=== PATIENT | male | born 1980 | race Caucasian/White ===

== ENCOUNTER 2021-11-11 14:38 | Emergency (ER) | payer SELFPAY ==
[2021-11-11] MEDS ORDERED: HYDROCODONE/APAP 10/325 TAB ONE (15:21)
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
--- NOTE | 2021-11-11 16:04 | ER ---
Nurse's Notes [facility] Name: Dwayne Lambert Age: 41 yrs Sex: Male : 1980 Arrival Date: 11/11/2021 Time: 14:40 Bed 9 Private MD: Diagnosis: Contusion of right elbow;Pain in right elbow Presentation: 11/11 15:05 Chief complaint: Patient states: R elbow pain x approx 2 weeks, states, " I hit it on ph something and it's been hurting since.". Coronavirus screen: Vaccine status: Patient reports being unvaccinated. Ebola Screen: No symptoms or risks identified at this time. Initial Sepsis Screen: Does the patient meet any 2 criteria? No. Patient's initial sepsis screen is negative. Does the patient have a suspected source of infection? No. Patient's initial sepsis screen is negative. Risk Assessment: Do you want to hurt yourself or someone else? Patient reports no desire to harm self or others. Onset of symptoms was November 11, 2021. 15:05 Method Of Arrival: Ambulatory ph 15:05 Acuity: ZE 4 ph Triage Assessment: 15:07 General: Appears in no apparent distress. comfortable, well groomed, Behavior is calm, ph cooperative, appropriate for age. Pain: Complains of pain in right elbow. Neuro: No deficits noted. Derm: Skin is intact, is healthy with good turgor, Skin is pink, warm \\T\\ dry. Musculoskeletal: Circulation, motion, and sensation intact. Range of motion: intact in all extremities. Historical: - Allergies: 15:07 No Known Allergies; ph - PMHx: 15:07 None; ph - Immunization history:: Adult Immunizations unknown. - Social history:: Smoking status: Patient reports the use of cigarette tobacco products, smokes one-half pack cigarettes per day. - Family history:: not pertinent. Screenin:23 Abuse screen: Denies threats or abuse. Denies injuries from another. Nutritional ph screening: No deficits noted. Tuberculosis screening: No symptoms or risk factors identified. Fall Risk None identified. Assessment: 15:22 General: SEE TRIAGE ASSESSMENT. ph Vital Signs: 15:05 BP 128 / 85; Pulse 62; Resp 18; Temp 98.6; Pulse Ox 98% on R/A; Weight 102.06 kg; ph Height 6 ft. 4 in. (193.04 cm); 15:05 Body Mass Index 27.39 (102.06 kg, 193.04 cm) ph ED Course: 14:40 Patient arrived in ED. rg4 14:47 Mack Merritt MD is Attending Physician. [facility] 15:07 Triage completed. ph 15:07 Arm band placed on Patient placed in waiting room, Patient notified of wait time. X-ray ph ordered. 15:22 Linda Ya, RN is Primary Nurse. ph 16:03 Aj Ruff MD is Referral Physician. [facility] 16:10 XRAY Elbow RIGHT 3 view In Process Unspecified. EDMS 16:16 No provider procedures requiring assistance completed. Patient did not have IV access ss during this emergency room visit. Sling applied to right arm. Administered Medications: 15:23 Drug: [place] (HYDROcodone-acetaminophen) 10 mg-325 mg 1 tabs Route: PO; ph 16:16 Follow up: Response: No adverse reaction ss 16:16 Drug: Motrin (ibuprofen) 600 mg Route: PO; ss 16:16 Follow up: Response: No adverse reaction ss Outcome: 16:04 Discharge ordered by . [facility] 16:23 Discharged to home ambulatory. ss 16:23 Condition: good 16:23 Discharge instructions given to patient, family, Instructed on discharge instructions, follow up and referral plans. medication usage, Demonstrated understanding of instructions, follow-up care, medications, Prescriptions given X 2. 16:25 Patient left the ED. ss Signatures: Dispatcher [employer] EDKY Mack Merritt MD MD cha Smirch, Shelby, RN RN Linda Ya RN RN Meli Shell rg4
[2021-11-11] MEDS ORDERED: IBUPROFEN 200 MG TAB PO ONE (16:18)
--- NOTE | 2021-11-11 16:25 | RAD REPORT ---
EXAM DESCRIPTION: RAD - Elbow Right 3 View - 11/11/2021 4:08 pm CLINICAL HISTORY: Right elbow pain FINDINGS: No fracture or dislocation is seen. No bone or joint abnormality noted
[2021-11-11 16:31] VITALS: BP 128/85; TEMP 98.6; O2SAT 98
== END 2021-11-11 16:25 | disposition home or self-care (01) ==
LOC: ER 14:38
DX: S50.01XA Contusion of right elbow, initial encounter (principal); W22.8XXA Striking against or struck by other objects, initial encounter; Y92.009 Unspecified place in unspecified non-institutional (private) residence as the place of occurrence of the external cause; F17.210 Nicotine dependence, cigarettes, uncomplicated
CPT/HCPCS: 99284

== ENCOUNTER 2023-11-11 16:22 | Emergency (ER) | payer SELFPAY ==
--- OUTSIDE RECORDS SUMMARY | 2023-11-11 16:25 | XMS REPORT | Continuity of Care Document ---
Author Name Unknown Address [address] [facility] [address] [place] [address] [facility] thconnect Address [address] [facility] [place] [address] Care Team Providers Care Public Health Professor Name Role Phone Unavailable Unavailable Unavailable Results Test Description Test Time Test Comments Results Result Co mments Source SARS-CoV-2 (COVID-19), RT-PCR/[id number] 17:22:59* Test Item Value Reference Range Interpretation Comments SARS-CoV-2 INTERPRETATION (test code = 57451) POSITIVE SEE NOTE A SARS-CoV-2 RNA DETECTEDPositive results are indicative of the presence of SARS-CoV-2 RNA;clinical correlation with patient history and other diagnosticinformation is necessary to determine patient infection status.Positive results do not rule out bacterial infection or co-infectionwith other viruses. Positive and negative predictive values oftesting are highly dependent on prevalence. SOURCE (test code = 89173) NASOPHARYNGEAL Note: Methodolog y is Clarke Brianna Real-Time RT-PCR. The expected result or reference range is NEGATIVE (Not Detected). For more information regarding COVID-19 testing to include clinicalinformation, methodology detail, intended use, FDA authorization andrecommended fact sheets for patients or healthcare providers, see [employer] Announcement: SARS-CoV-2 (COVID-19) by NAAT at URL below (note,fact sheets are provided by method given in report:[email or web address]/ Alternatively, see downloadable PDF fact sheet at:[email or web address] om/[email or web address]-[email or web address] UNLESS OTHERWISE INDICATED, ALL TESTING PERFORMED [facility] [employer] [address] [place] [id number] INJECTION MOLDING TECHNICIAN: Cheryl YANEZIA NUMBER [id number] [facility] [place]. [id number]
--- NOTE | 2023-11-11 16:40 | ER ---
Nurse's Notes [facility] Name: Dwayne Lambert Age: 43 yrs Sex: Male : 1980 Arrival Date: 11/11/2023 Time: 16:22 Bed Waiting Private MD: Diagnosis: Olecranon bursitis, left elbow Presentation: 11/10 16:35 Chief complaint: Patient states: left elbow swelling x2 months and is now starting to as6 be painful. Coronavirus screen: At this time, the client does not indicate any symptoms associated with coronavirus-19. Ebola Screen: No symptoms or risks identified at this time. Risk Assessment: Do you want to hurt yourself or someone else? Patient reports no desire to harm self or others. Onset of symptoms was September 2023. 16:35 Acuity: ZE 4 as6 16:35 Method Of Arrival: Ambulatory as6 16:41 Initial Sepsis Screen: Does the patient meet any 2 criteria? No. Patient's initial as6 sepsis screen is negative. Does the patient have a suspected source of infection? No. Patient's initial sepsis screen is negative. Triage Assessment: 16:40 General: Appears in no apparent distress. Behavior is calm, cooperative. Pain: as6 Complains of pain in left elbow. Musculoskeletal: Swelling present in left elbow. Historical: - Allergies: 16:36 No Known Allergies; as6 - PMHx: 16:36 None; as6 - PSHx: 16:36 None; as6 - Immunization history:: Adult Immunizations up to date. - Infectious Disease History:: Denies. - Social history:: Smoking status: Patient denies any tobacco usage or history of. Screenin:40 [facility] ED Fall Risk Assessment (Adult) History of falling in the last 3 months, as6 including since admission No falls in past 3 months (0 pts) Confusion or Disorientation No (0 pts) Intoxicated or Sedated No (0 pts) Impaired Gait No (0 pts) Mobility Assist Device Used No (0 pt) Altered Elimination No (0 pt) Score/Fall Risk Level 0 - 2 = Low Risk Oriented to surroundings, Maintained a safe environment, Educated pt \T\ family on fall prevention, incl call for assistance when getting out of bed, Assessed \T\ reinforced patient's understanding of fall precautions. Abuse screen: Denies threats or abuse. Denies injuries from another. Nutritional screening: No deficits noted. Tuberculosis screening: No symptoms or risk factors identified. Vital Signs: 16:38 BP 131 / 80; Pulse 73; Resp 18 S; Temp 98.3(TE); Pulse Ox 100% on R/A; Weight 95.25 kg as6 (R); Height 6 ft. 4 in. (R); Pain 6/10; 16:38 Body Mass Index 25.56 (95.25 kg, 193.04 cm) as6 16:38 Pain Scale: Adult as6 ED Course: 16:25 Patient arrived in ED. mr 16:25 Melania Sage FNP-C is [facility]. kb 16:25 Carroll Gilliland MD is Attending Physician. kb 16:35 Arm band placed on. as6 16:36 Triage completed. as6 16:41 Patient has correct armband on for positive identification. Provided Education on: as6 follow up with ortho . 16:41 No provider procedures requiring assistance completed. Patient did not have IV access as6 during this emergency room visit. Administered Medications: No medications were administered Medication: 16:41 VIS not applicable for this client. as6 Outcome: 16:39 Discharge ordered by . kb 16:41 Discharged to home ambulatory, as6 16:41 Condition: stable 16:41 Discharge instructions given to patient, Instructed on discharge instructions, follow up and referral plans. medication usage, Demonstrated understanding of instructions, follow-up care, medications, Prescriptions given X 1, 16:43 Patient left the ED. as6 Signatures: Melania Sage FNP-C FNP-Katiuska Fernández, Roc Reg Masood Hull, RN RN as6
--- NOTE | 2023-11-11 16:40 | EDPHYS ---
Physician Documentation [facility] Name: Dwayne Lambert Age: 43 yrs Sex: Male : 1980 Arrival Date: 11/11/2023 Time: 16:22 Bed Waiting Private MD: ED Physician Carroll Gilliland HPI: 11/10 17:30 This 43 yrs old Male presents to ER via Ambulatory with complaints of Elbow Swelling. kb 17:30 Pt is a 43 year old male who presents for swelling and tenderness to left elbow that kb started 2 weeks ago. States there has been times when he was able to pop the area and it return to normal size, but then it swells again. Denies fever, decreased ROM. Historical: - Allergies: 16:36 No Known Allergies; as6 - PMHx: 16:36 None; as6 - PSHx: 16:36 None; as6 - Immunization history:: Adult Immunizations up to date. - Infectious Disease History:: Denies. - Social history:: Smoking status: Patient denies any tobacco usage or history of. ROS: 17:01 Constitutional: As per HPI kb Exam: 17:25 Constitutional: This is a well developed, well nourished patient who is awake, alert, kb and in no acute distress. Head/Face: Normocephalic, atraumatic. ENT: Moist Mucous membranes Cardiovascular: Regular rate Respiratory: Respirations even and unlabored. No increased work of breathing. Talking in full sentences Abdomen/GI: Soft, non-tender. No distention Skin: Warm, dry with normal turgor. Normal color. Neuro: Awake and alert, GCS 15, oriented to person, place, time, and situation. Moves all extremities. Normal gait. 17:25 Musculoskeletal/extremity: Extremities: grossly normal except: noted in the left elbow: swelling, tenderness, ROM: intact in all extremities, Circulation is intact in all extremities. Sensation intact. Vital Signs: 16:38 BP 131 / 80; Pulse 73; Resp 18 S; Temp 98.3(TE); Pulse Ox 100% on R/A; Weight 95.25 kg as6 (R); Height 6 ft. 4 in. (R); Pain 6/10; 16:38 Body Mass Index 25.56 (95.25 kg, 193.04 cm) as6 16:38 Pain Scale: Adult as6 MDM: 16:25 Patient medically screened. kb 17:25 Differential diagnosis: cellulitis, abscess, bursitis. Data reviewed: vital signs, kb nurses notes. Test considered but Not performed: X-ray: xray considered but pt has no bony tenderness or injury. Counseling: I had a detailed discussion with the patient and/or guardian regarding the historical points, exam findings, and any diagnostic results supporting the discharge/admit diagnosis, the need for outpatient follow up, a family practitioner, to return to the emergency department if symptoms worsen or persist or if there are any questions or concerns that arise at home. ED course: Discussed bursitis and treatment. No erythema, warmth, signs of infection at this time. Discussed this with pt and pt reports the area was red and burning hot last night. States he has tried all of the compresses without any improvement. . Administered Medications: No medications were administered Disposition Summary: 11/11/23 16:39 Discharge Ordered Notes: Location: Home kb Condition: Stable kb Diagnosis - Olecranon bursitis, left elbow kb Followup: kb - With: Emergency Department - When: As needed - Reason: Worsening of condition Followup: kb - With: Private Physician - When: 2 - 3 days - Reason: Recheck today's complaints, Continuance of care, Re-evaluation by your physician Discharge Instructions: - Discharge Summary Sheet kb - Elbow Bursitis, Uupf-[id number] kb Forms: - Medication Reconciliation Form kb - Antibiotic Education kb - Prescription Opioid Use kb - Patient Portal Instructions kb - Leadership Thank You Letter kb Prescriptions: - Cephalexin 500 mg Oral Capsule - take 1 capsule ORAL route every 8 hours for 10 days; 30 capsule; Refills: 0, kb Product Selection Permitted Signatures: Melania Sage, M[employer]-C PACKAGING TECHNICIAN-Masood Tang, RN RN as6
[2023-11-11 17:06] VITALS: BP 131/80; TEMP 98.3; O2SAT 100
== END 2023-11-11 16:43 | disposition home or self-care (01) ==
LOC: ER 16:22
DX: M70.22 Olecranon bursitis, left elbow (principal)
CPT/HCPCS: 99283

== ENCOUNTER 2025-03-23 08:34 | Emergency (ER) | payer SELFPAY ==
[2025-03-23] MEDS ORDERED: ALBUTEROL 2.5 MG/3 ML NEB SOL ONE (09:06)
[2025-03-23 09:14] LABS: Influenza A Ag Negative; Influenza B Ag Negative; SARS-CoV-2 Antigen Rapid Res Negative (Negative)
--- NOTE | 2025-03-23 09:23 | ER ---
Nurse's Notes [facility] Name: Dwayne Lambert Age: 44 yrs Sex: Male : 1980 Arrival Date: 03/23/2025 Time: 08:34 Bed 6 Private MD: Diagnosis: Acute upper respiratory infection, unspecified Presentation: 03/23 08:42 Chief complaint: Patient states: CONGESTION AND SORE THROAT X 1 WEEK. Coronavirus db screen: Client denies travel out of the [place] in the last 14 days. At this time, the client does not indicate any symptoms associated with coronavirus-19. Ebola Screen: Patient negative for fever greater than or equal to 101.5 degrees Fahrenheit, and additional compatible Ebola Virus Disease symptoms Patient denies exposure to infectious person. Patient denies travel to an Ebola-affected area in the 21 days before illness onset. No symptoms or risks identified at this time. Initial Sepsis Screen: Does the patient meet any 2 criteria? No. Patient's initial sepsis screen is negative. Does the patient have a suspected source of infection? No. Patient's initial sepsis screen is negative. Risk Assessment: Do you want to hurt yourself or someone else? Patient reports no desire to harm self or others. Onset of symptoms was March 18, 2025. 08:42 Method Of Arrival: Ambulatory db 08:42 Acuity: ZE 4 db Triage Assessment: 08:53 General: Appears in no apparent distress. Behavior is appropriate for age. Pain: bp Complains of pain in neck. EENT: Reports pain when swallowing. Neuro: No deficits noted. Cardiovascular: No deficits noted. Respiratory: No deficits noted. GI: No signs and/or symptoms were reported involving the gastrointestinal system. : No signs and/or symptoms were reported regarding the genitourinary system. Derm: No deficits noted. Musculoskeletal: No deficits noted. Historical: - Allergies: 08:45 Banana; db - Home Meds: 08:45 None [Active]; db - PMHx: 08:45 None; db - Immunization history:: Adult Immunizations unknown. - Infectious Disease History:: Denies. - Social history:: Smoking status: Patient denies any tobacco usage or history of. Screenin:54 [facility] ED Fall Risk Assessment (Adult) History of falling in the last 3 months, bp including since admission No falls in past 3 months (0 pts) Confusion or Disorientation No (0 pts) Intoxicated or Sedated No (0 pts) Impaired Gait No (0 pts) Mobility Assist Device Used No (0 pt) Altered Elimination No (0 pt) Score/Fall Risk Level 0 - 2 = Low Risk Oriented to surroundings. Abuse screen: Denies threats or abuse. Denies injuries from another. Nutritional screening: No deficits noted. Tuberculosis screening: No symptoms or risk factors identified. Assessment: 08:54 General: SEE TRIAGE NOTE. bp 09:13 Reassessment: Patient appears in no apparent distress at this time. Patient is alert, bp oriented x 3, equal unlabored respirations, skin warm/dry/pink. Vital Signs: 08:42 BP 159 / 98; Pulse 64; Resp 18; Temp 97.9; Pulse Ox 98% ; Weight 111.58 kg; Height 6 db ft. 4 in. ; 09:12 BP 135 / 85; Pulse 67; Resp 16; Pulse Ox 97% ; bp 08:42 Body Mass Index 29.94 (111.58 kg, 193.04 cm) db ED Course: 08:38 Patient arrived in ED. al6 08:39 Francis Amaya MD is Attending Physician. sp3 08:40 [facility]C [facility] kb 08:46 Jaja Esparza, RN is Primary Nurse. db 08:53 Triage completed. db 08:53 Arm band placed on. bp 08:54 Patient has correct armband on for positive identification. bp 08:56 Group A Streptococcus Rapid Sent. bc6 08:56 COVID-19 Ag + Flu A+B Ag Sent. bc6 08:56 COVID swab sent to lab. Strep swab sent to lab. bc6 09:36 No provider procedures requiring assistance completed. Patient did not have IV access bp during this emergency room visit. Administered Medications: 09:12 Drug: Dexamethasone IM 10 mg IM once Route: IM; Site: right deltoid; bp 09:37 Follow up: Response: No adverse reaction bp 09:12 Drug: Albuterol Inhalation 2.5 mg Inhalation once Route: Inhalation; bp Medication: 08:54 VIS not applicable for this client. bp Outcome: 09:22 Discharge ordered by . kb 09:36 Discharged to home ambulatory, bp 09:36 Condition: stable 09:36 Discharge instructions given to patient, Instructed on discharge instructions, follow up and referral plans. medication usage, Demonstrated understanding of instructions, follow-up care, medications, Prescriptions given X 2, 09:37 Patient left the ED. bp Signatures: Melania Sage FNP-C FNP-Ckb Peltier, Brian, RN RN bp Francis Amaya MD MD sp3 Jaja Esparza RN RN db Marisela Rodriguez 6 [place]6 Corrections: (The following items were deleted from the chart) 08:54 08:45 Allergies: No Known Allergies; db db
--- NOTE | 2025-03-23 09:23 | EDPHYS ---
Physician Documentation [facility] Name: Dwayne Lambert Age: 44 yrs Sex: Male : 1980 Arrival Date: 03/23/2025 Time: 08:34 Bed 6 Private MD: ED Physician Francis Amaya HPI: 03/23 08:47 This 44 yrs old Male presents to ER via Unassigned with complaints of Flu Symptoms. kb 08:47 Patient is a 44-year-old male who presents for cough, congestion, sore throat, body kb aches, subjective fever for 1 week. States his boss told him he needed to come in today for evaluation.. Historical: - Allergies: 08:45 Banana; db - Home Meds: 08:45 None [Active]; db - PMHx: 08:45 None; db - Immunization history:: Adult Immunizations unknown. - Infectious Disease History:: Denies. - Social history:: Smoking status: Patient denies any tobacco usage or history of. ROS: 08:47 Constitutional: As per HPI kb Exam: 08:47 Constitutional: This is a well developed, well nourished patient who is awake, alert, kb and in no acute distress. Head/Face: Normocephalic, atraumatic. ENT: Moist Mucous membranes Respiratory: Respirations even and unlabored. No increased work of breathing. Talking in full sentences Skin: Warm, dry with normal turgor. Normal color. MS/ Extremity: Pulses equal, no cyanosis. Neurovascular intact. Full, normal range of motion. Neuro: Awake and alert, GCS 15, oriented to person, place, time, and situation. 08:47 ENT: Ear canal(s): are normal, TM's: fluid levels, on the right, Nose: is normal, Posterior pharynx: erythema, that is moderate, Vital Signs: 08:42 BP 159 / 98; Pulse 64; Resp 18; Temp 97.9; Pulse Ox 98% ; Weight 111.58 kg; Height 6 db ft. 4 in. ; 09:12 BP 135 / 85; Pulse 67; Resp 16; Pulse Ox 97% ; bp 08:42 Body Mass Index 29.94 (111.58 kg, 193.04 cm) db MDM: 08:40 Medical Screening Exam initiated kb 08:48 Data reviewed: vital signs, nurses notes. kb 09:21 Differential diagnosis: covid, flu, pneumonia, strep. I considered the following kb discharge prescriptions or medication management in the emergency department I discussed and recommended Over The Counter medications, Antibiotics: At this time antibiotics are not recommended. Test considered but Not performed: X-ray: chest xray considered but lungs clear bilaterally, resp even and unlabored. Counseling: I had a detailed discussion with the patient and/or guardian regarding the historical points, exam findings, and any diagnostic results supporting the discharge/admit diagnosis, lab results, the need for outpatient follow up, a family practitioner, to return to the emergency department if symptoms worsen or persist or if there are any questions or concerns that arise at home. 03/23 08:40 Order name: COVID-19 Ag + Flu A+B Ag; Complete Time: 09:15 kb 03/23 08:40 Order name: Group A Streptococcus Rapid; Complete Time: 09:05 kb 03/23 09:05 Order name: Throat Culture EDMS Administered Medications: 09:12 Drug: Dexamethasone IM 10 mg IM once Route: IM; Site: right deltoid; bp 09:37 Follow up: Response: No adverse reaction bp 09:12 Drug: Albuterol Inhalation 2.5 mg Inhalation once Route: Inhalation; bp Disposition Summary: 03/23/25 09:22 Discharge Ordered Notes: Location: Home kb Condition: Stable kb Diagnosis - Acute upper respiratory infection, unspecified kb Followup: kb - With: Emergency Department - When: As needed - Reason: Worsening of condition Followup: kb - With: Private Physician - When: 2 - 3 days - Reason: Recheck today's complaints, Continuance of care, Re-evaluation by your physician Discharge Instructions: - Discharge Summary Sheet kb - Upper Respiratory Infection, Adult, [id number] kb Forms: - Medication Reconciliation Form kb - Antibiotic Education kb - Prescription Opioid Use kb - Patient Portal Instructions kb - Leadership Thank You Letter kb Prescriptions: - albuterol sulfate 90 mcg/actuation Inhalation HFA Aerosol Inhaler - inhale 2 puff INHALATION route every 4 to 6 hours as needed for shortness of kb breath or wheezing; 1 Unspecified; Refills: 0, Product Selection Permitted - Prednisone 20 mg Oral Tablet - take 1 tablet ORAL route once daily for 5 days; 5 tablet; Refills: 0, Product kb Selection Permitted Signatures: Dispatcher [employer] EDMS Melania Sage, CHECK TOTALER-C CHECK TOTALER-Carroll Szymanski, RN RN bp Jaja Esparza, RN RN db Corrections: (The following items were deleted from the chart) 08:40 08:40 COVID-19 Ag + Flu A+B Ag+I.LAB.BRZ ordered. EDMS EDMS 08:40 08:40 Group A Streptococcus Rapid Sc+I.LAB.BRZ ordered. EDMS EDMS 08:54 08:45 Allergies: No Known Allergies; db db
[2025-03-23 09:47] VITALS: TEMP 97.9
[2025-03-23 09:48] VITALS: BP 135/85; O2SAT 97
== END 2025-03-23 09:37 | disposition home or self-care (01) ==
LOC: ER 08:34
DX: J06.9 Acute upper respiratory infection, unspecified (principal); Z11.52 Encounter for screening for COVID-19
CPT/HCPCS: 36415; 87070; 87428; 96372; 99284; J1100; J7613

== ENCOUNTER 2025-04-18 11:27 | Emergency (ER) | payer SELFPAY ==
--- NOTE | 2025-04-18 12:19 | RAD REPORT ---
EXAM: CT Head Brain Wo Cont HISTORY: PAIN COMPARISON: None TECHNIQUE: Multiple contiguous axial images were obtained for a CT of the brain without contrast. Sag ittal and coronal reformats were performed. One or more of the following dose reduction techniques were used: Automated exposure control, adjus tment of the mA and kV according to patient size, and iterative reconstruction. Unless otherwise specified, incidental findings do not require dedicated imaging follow-up. FINDINGS: No evidence of hydrocephalus, intracranial hemorrhage, or extra-axial fluid collection. The brain is normal in morphology. The calvarium is intact. The visualized paranasal sinuses and mastoid air cells are essentially clear . IMPRESSION: No evidence of acute intracranial abnormality.
[2025-04-18 12:47] LABS: Absolute Lymphocytes (CBC) 4.0 K/uL (0.7-4.9); Hematocrit 44.7 % (39.6-49.0); Hemoglobin 15.0 g/dL (13.6-17.9); MCH 31.2 pg (27.0-35.0); MCHC 33.5 g/dL (32.0-36.0); MCV 93.0 fL (80-100); MPV 9.1 fL (7.6-11.3); Nucleated RBC Absolute Count 0.0 (0-0); Nucleated Red Blood Cells % 0.1 % (0-0); RBC Red Blood Cell Count 4.80 M/uL (4.33-5.43); White Blood Count 11.00 thou/uL (4.3-10.9)
--- NOTE | 2025-04-18 12:52 | RAD REPORT ---
EXAMINATION: ONE VIEW CHEST XR CLINICAL INDICATION: Male, 44 years old.,syncope TECHNIQUE: Frontal chest projection is submitted. Examination is limited by patient positioning and t echnique. COMPARISON: No prior exam. FINDINGS: The lungs are well inflated and clear. No pneumothorax or sizable effusion. The heart is normal in s ize. Mediastinal contours are unremarkable. IMPRESSION: No acute intrathoracic abnormalities.
--- NOTE | 2025-04-18 12:52 | RAD REPORT ---
EXAMINATION: XR RIGHT SHOUDLER CLINICAL INDICATION: Male, 44 years old. PAIN RIGHT TECHNIQUE:Two view radiograph of the right shoulder were obtained. COMPARISON: No prior exam. FINDINGS: No acute bone or joint abnormality detected. Soft tissues are unremarkable. IMPRESSION: No acute or significant abnormalities.
[2025-04-18 14:14] LABS: ALT/SGPT 22.0 U/L (16-61); AST/SGOT 25.0 U/L (15-37); Albumin 2.5 g/dL (3.4-5.0); Albumin/Globulin Ratio 0.4 (1.1-1.8); Alkaline Phosphatase 176.0 U/L (45-117); Anion Gap 10.7 mEq/L (5.0-15.0); BUN Blood Urea Nitrogen 14.0 mg/dL (7-18); Bilirubin Indirect, Calculated 0.5 mg/dL (0.2-0.8); Globulin 6.0 g/dL (2.3-3.5); Glucose Level 91.0 mg/dL (74-106); Troponin High Sensitivity 15.8 pg/mL (<58.9)
[2025-04-18 14:16] LABS: Magnesium 2.2 mg/dL (1.6-2.4); Potassium 3.7 mEq/L (3.5-5.1)
[2025-04-18] MEDS ORDERED: HYDROCODONE/APAP 5/325 MG TAB ONE (14:49)
[2025-04-18] MEDS ORDERED: NA CHLORIDE 0.9% 1,000 ML ONE (14:49)
--- NOTE | 2025-04-18 15:52 | EDPHYS ---
Physician Documentation [facility] Name: Dwayne Lambert Age: 44 yrs Sex: Male : 1980 Arrival Date: 04/18/2025 Time: 11:27 Bed 15 Private MD: ED Physician Carroll Gilliland HPI: 04/18 15:04 This 44 yrs old Male presents to ER via Ambulatory with complaints of Passed Out Prior kb To Arrival, Head Injury-Adult, Shoulder Injury - RT. 15:04 Pt is a 44 year old male who presents for syncope, head injury and pain to right kb shoulder. States he stood up this morning, got dizzy so he sat back down on an ottoman, then passed out. States he woke up on the floor. Reports he did hit his head and has pain to right shoulder. This has happened before due to a.fib. . Historical: - Allergies: 11:47 Banana; me1 - PMHx: 11:47 Atrial fibrillation; me1 - PSHx: 11:47 Myringotomy and insertion of tympanic ventilation tube; me1 - Immunization history:: Adult Immunizations up to date. - Infectious Disease History:: Denies. - Social history:: Smoking status: Patient reports the use of cigarette tobacco products, smokes one-half pack cigarettes per day. ROS: 15:03 Constitutional: As per HPI kb Exam: 14:37 Constitutional: This is a well developed, well nourished patient who is awake, alert, kb and in no acute distress. Head/Face: Normocephalic, atraumatic. ENT: Moist Mucous membranes Cardiovascular: Regular rate Respiratory: Respirations even and unlabored. No increased work of breathing. Talking in full sentences Abdomen/GI: Soft, non-tender. No distention Skin: Warm, dry with normal turgor. Normal color. Neuro: Awake and alert, GCS 15, oriented to person, place, time, and situation. 14:37 ECG was reviewed by the Attending Physician. 14:37 Musculoskeletal/extremity: Extremities: grossly normal except: noted in the right clavicle: pain, tenderness, ROM: limited active range of motion due to pain, Circulation is intact in all extremities. Sensation intact. Weight bearing: able to fully bear weight, Vital Signs: 11:44 BP 139 / 87; Pulse 65; Resp 16; Temp 98.4; Pulse Ox 98% ; Weight 65.77 kg; Height 6 ft. me1 4 in. ; Pain 2/10; 12:00 BP 129 / 77 Supine; Pulse 56; ts3 12:01 BP 124 / 83 Sitting; Pulse 57; ts3 12:02 BP 133 / 92 Standing; Pulse 60; ts3 13:12 BP 115 / 68 Supine; Pulse 61; Resp 18; Pulse Ox 100% on R/A; ts3 14:15 BP 129 / 90; Pulse 51; Resp 18; Pulse Ox 100% on R/A; kj2 15:11 BP 122 / 79; Pulse 52; Resp 20; Pulse Ox 100% on R/A; kj2 16:01 BP 124 / 80; Pulse 72; Resp 18; Temp 98(O); Pulse Ox 100% ; kj2 11:44 Body Mass Index 17.65 (65.77 kg, 193.04 cm) me1 11:44 Pain Scale: Adult me1 Marta Coma Score: 11:44 Eye Response: spontaneous(4). Motor Response: obeys commands(6). Verbal Response: me1 oriented(5). Total: 15. MDM: 11:42 Medical Screening Exam initiated kb 15:03 Data reviewed: vital signs, nurses notes. Independent interpretation of the following kb test(s) in the Emergency Department X-Ray: My interpretation is No clavicle fracture. 15:50 Differential Diagnosis: cardiac arrhythmia, idiopathic syncope, vasovagal episode, kb dehydration. Consideration of Admission/Observation Escalation of care including admission/observation considered. admission considered but pt states he feels fine and would like to go home. Counseling: I had a detailed discussion with the patient and/or guardian regarding the historical points, exam findings, and any diagnostic results supporting the discharge/admit diagnosis, lab results, radiology results, the need for outpatient follow up, a family practitioner, to return to the emergency department if symptoms worsen or persist or if there are any questions or concerns that arise at home. 04/18 11:53 Order name: Basic Metabolic Panel; Complete Time: 14:17 kb 04/18 11:53 Order name: CBC with Diff; Complete Time: 13:18 kb 04/18 11:53 Order name: Hepatic Function; Complete Time: 14:17 kb 04/18 11:53 Order name: Magnesium; Complete Time: 14:17 kb 04/18 11:53 Order name: Troponin High Sensitivity; Complete Time: 14:17 kb 04/18 15:16 Order name: Troponin High Sensitivity; Complete Time: 15:50 kb 04/18 11:53 Order name: CT Head Brain wo Cont; Complete Time: 12:19 kb 04/18 11:53 Order name: Chest Single View XRAY; Complete Time: 13:18 kb 04/18 11:53 Order name: Shoulder Right (2 View) XRAY; Complete Time: 13:18 kb 04/18 11:53 Order name: Cardiac monitoring; Complete Time: 13:47 kb 04/18 11:53 Order name: EKG - Nurse/Tech; Complete Time: 14:21 kb 04/18 11:53 Order name: IV Saline Lock; Complete Time: 15:09 kb 04/18 11:53 Order name: Labs collected and sent; Complete Time: 12:36 kb 04/18 11:53 Order name: NPO; Complete Time: 12:37 kb 04/18 11:53 Order name: O2 Per Protocol; Complete Time: 12:43 kb 04/18 11:53 Order name: O2 Sat Monitoring; Complete Time: 12:43 kb 04/18 11:53 Order name: Orthostatics; Complete Time: 13:47 kb 04/18 15:52 Order name: Sling; Complete Time: 16:26 kb EC:37 Rate is 50 beats/min. Rhythm is regular. QRS Aiken is Normal. AL interval is normal at kb 160 msec. QRS interval is normal at 108 msec. QT interval is normal at 379 msec. Administered Medications: 15:00 Drug: HYDROcodone-acetaminophen PO 5 mg-325 mg 1 tabs PO once Route: PO; kj2 16:04 Follow up: Response: No adverse reaction; Pain is decreased kj2 15:09 Drug: NS 0.9% IV 1000 ml IV at 1000 ml once; to be given as a bolus over 60 minutes kj2 Route: IV; Rate: 1000 ml; Site: left antecubital; 16:04 Follow up: IV Status: Completed infusion; IV Intake: 1000ml kj2 Disposition: 17:51 Co-signature as Attending Physician, Carroll Gilliland MD I reviewed the patient's care rn provided by the Advanced Practice Provider and agree with the diagnosis and treatment plan. Disposition Summary: 04/18/25 15:52 Discharge Ordered Notes: Location: Home kb Condition: Stable kb Diagnosis - Syncope kb - Unspecified injury of head, initial encounter kb - Pain in right shoulder kb Followup: kb - With: Emergency Department - When: As needed - Reason: Worsening of condition Followup: kb - With: Private Physician - When: 2 - 3 days - Reason: Recheck today's complaints, Continuance of care, Re-evaluation by your physician Discharge Instructions: - Discharge Summary Sheet kb - Shoulder Pain, [id number] kb - Syncope, [id number] kb - Head Injury, Adult, [id number] kb Forms: - Medication Reconciliation Form kb - Antibiotic Education kb - Prescription Opioid Use kb - Patient Portal Instructions kb - Leadership Thank You Letter kb Signatures: Dispatcher [employer] EDMS Melania Sage, TRAFFIC EXPERT-C TRAFFIC EXPERT-Ckb Carroll Gilliland MD MD rn Eddleman, Michelle, RN RN me1 Bree Nguyen RN RN kj2 Corrections: (The following items were deleted from the chart) 11:47 11:47 PSHx: None; me1 me1 11:53 11:53 Head Brain Wo Cont+CT.RAD.BRZ ordered. EDMS EDMS 11:53 11:53 Chest Single View+RAD.RAD.BRZ ordered. EDMS EDMS 11:53 11:53 Shoulder Right 2 View+RAD.RAD.BRZ ordered. EDMS EDMS 15:16 15:16 Troponin High Sensitivity+C.LAB.BRZ ordered. EDMS EDMS
--- NOTE | 2025-04-18 15:52 | ER ---
Nurse's Notes [facility] Name: Dwayne Lambert Age: 44 yrs Sex: Male : 1980 Arrival Date: 04/18/2025 Time: 11:27 Bed 15 Private MD: Diagnosis: Syncope;Unspecified injury of head, initial encounter;Pain in right shoulder Presentation: 04/18 11:44 Chief complaint: Patient states: at 06:00 this morning patient stood up, became me1 lightheaded, sat on ottoman then passed out, hit right temporal area on tile floor. c/o pain to right shoulder. 2/10 now, 8/10 with movement. No blood thinners. Coronavirus screen: Vaccine status: Patient reports receiving the 2nd dose of the covid vaccine. Ebola Screen: No symptoms or risks identified at this time. Mechanism of Injury: The problem was sustained at home, resulted from a fall, stood up and became light headed then passed out. Initial Sepsis Screen: Does the patient meet any 2 criteria? No. Patient's initial sepsis screen is negative. Does the patient have a suspected source of infection? No. Patient's initial sepsis screen is negative. Risk Assessment: Do you want to hurt yourself or someone else? Patient reports no desire to harm self or others. 11:44 Method Of Arrival: Ambulatory [facility] 11:44 Acuity: ZE 3 me1 12:30 Onset of symptoms was April 18, 2025. kj2 Historical: - Allergies: 11:47 Banana; me1 - PMHx: 11:47 Atrial fibrillation; me1 - PSHx: 11:47 Myringotomy and insertion of tympanic ventilation tube; me1 - Immunization history:: Adult Immunizations up to date. - Infectious Disease History:: Denies. - Social history:: Smoking status: Patient reports the use of cigarette tobacco products, smokes one-half pack cigarettes per day. Screenin:30 [facility] ED Fall Risk Assessment (Adult) History of falling in the last 3 months, kj2 including since admission Yes- physiologic fall (2 pts) Confusion or Disorientation No (0 pts) Intoxicated or Sedated No (0 pts) Impaired Gait No (0 pts) Mobility Assist Device Used No (0 pt) Altered Elimination No (0 pt) Score/Fall Risk Level 0 - 2 = Low Risk Maintained a safe environment, Hourly rounding (assess needs \T\ fall precautionary measures) done. Abuse screen: Denies threats or abuse. Denies injuries from another. Nutritional screening: No deficits noted. Tuberculosis screening: No symptoms or risk factors identified. Assessment: 12:30 General: Appears in no apparent distress. Behavior is cooperative. Pain: Complains of kj2 pain in right shoulder Pain currently is 6 out of 10 on a pain scale. Neuro: Level of Consciousness is awake, alert, obeys commands, Oriented to person, place, time, situation. Cardiovascular: Patient's skin is warm and dry. Respiratory: Airway is patent Respiratory effort is unlabored. GI: No signs and/or symptoms were reported involving the gastrointestinal system. : No signs and/or symptoms were reported regarding the genitourinary system. 13:13 Reassessment: Patient appears in no apparent distress at this time. Patient is alert, kj2 oriented x 3, equal unlabored respirations, skin warm/dry/pink. 14:15 Reassessment: Patient appears in no apparent distress at this time. Patient and/or kj2 family updated on plan of care and expected duration. Pain level reassessed. Patient is alert, oriented x 3, equal unlabored respirations, skin warm/dry/pink. 15:15 Reassessment: Patient appears in no apparent distress at this time. Patient and/or kj2 family updated on plan of care and expected duration. Pain level reassessed. Patient is alert, oriented x 3, equal unlabored respirations, skin warm/dry/pink. Vital Signs: 11:44 BP 139 / 87; Pulse 65; Resp 16; Temp 98.4; Pulse Ox 98% ; Weight 65.77 kg; Height 6 ft. me1 4 in. ; Pain 2/10; 12:00 BP 129 / 77 Supine; Pulse 56; ts3 12:01 BP 124 / 83 Sitting; Pulse 57; ts3 12:02 BP 133 / 92 Standing; Pulse 60; ts3 13:12 BP 115 / 68 Supine; Pulse 61; Resp 18; Pulse Ox 100% on R/A; ts3 14:15 BP 129 / 90; Pulse 51; Resp 18; Pulse Ox 100% on R/A; kj2 15:11 BP 122 / 79; Pulse 52; Resp 20; Pulse Ox 100% on R/A; kj2 16:01 BP 124 / 80; Pulse 72; Resp 18; Temp 98(O); Pulse Ox 100% ; kj2 11:44 Body Mass Index 17.65 (65.77 kg, 193.04 cm) me1 11:44 Pain Scale: Adult me1 [place] Coma Score: 11:44 Eye Response: spontaneous(4). Motor Response: obeys commands(6). Verbal Response: me1 oriented(5). Total: 15. ED Course: 11:31 Patient arrived in ED. cj3 11:42 [facility]C [facility]. kb 11:42 Carroll Gilliland MD is Attending Physician. kb 11:47 Triage completed. me1 11:47 Arm band placed on Patient placed in waiting room. me1 12:08 CT Head Brain wo Cont In Process Unspecified. EDMS 12:18 Chest Single View XRAY In Process Unspecified. EDMS 12:18 Shoulder Right (2 View) XRAY In Process Unspecified. EDMS 12:30 Patient has correct armband on for positive identification. Bed in low position. Call kj2 light in reach. Provided Education on: call light. 12:30 No provider procedures requiring assistance completed. kj2 12:37 Basic Metabolic Panel Sent. hh1 12:37 CBC with Diff Sent. hh1 12:37 Hepatic Function Sent. hh1 12:37 Magnesium Sent. hh1 12:37 Troponin High Sensitivity Sent. hh1 12:41 Bree Nguyen, RN is Primary Nurse. kj2 14:21 EKG done, by refresh technician. reviewed by Melania DURBIN. ts3 15:09 Inserted saline lock: 20 gauge in left antecubital area, using aseptic technique. kj2 Flushed with 10 mL NS. 16:04 IV discontinued, intact, bleeding controlled, No redness/swelling at site. Pressure kj2 dressing applied. Administered Medications: 15:00 Drug: HYDROcodone-acetaminophen PO 5 mg-325 mg 1 tabs PO once Route: PO; kj2 16:04 Follow up: Response: No adverse reaction; Pain is decreased kj2 15:09 Drug: NS 0.9% IV 1000 ml IV at 1000 ml once; to be given as a bolus over 60 minutes kj2 Route: IV; Rate: 1000 ml; Site: left antecubital; 16:04 Follow up: IV Status: Completed infusion; IV Intake: 1000ml kj2 Medication: 16:03 VIS not applicable for this client. kj2 Intake: 16:04 IV: 1000ml; Total: 1000ml. kj2 Outcome: 15:52 Discharge ordered by . pearl 16:03 Discharged to home ambulatory, kj2 16:03 Condition: stable 16:03 Discharge instructions given to patient, Instructed on discharge instructions, follow up and referral plans. Demonstrated understanding of instructions, follow-up care, 16:27 Patient left the ED. kj2 Signatures: Dispatcher [employer] EDMS Melania Sage, MED SURG NURSE-C MED SURG NURSE-CkAlena Sabillon, RN RN me1 Bree Nguyen RN RN kj2 Trinidad Pino 3 Yumiko Quintanilla 3 Ludy Adam, RN RN hh1 Corrections: (The following items were deleted from the chart) 11:47 11:47 PSHx: None; me1 me1 13:49 13:12 BP 115 / 68; Pulse 61bpm; Resp 18bpm; Pulse Ox 100% RA; kj2 ts3 13:50 12:00 BP 129 / 77; Pulse 56bpm; ts3 ts3
[2025-04-18 19:31] VITALS: O2SAT 100
[2025-04-18 19:36] VITALS: BP 124/80; TEMP 98
== END 2025-04-18 16:27 | disposition home or self-care (01) ==
LOC: ER 11:27
DX: S09.90XA Unspecified injury of head, initial encounter (principal); M25.511 Pain in right shoulder; R55 Syncope and collapse; F17.210 Nicotine dependence, cigarettes, uncomplicated; W07.XXXA Fall from chair, initial encounter; Y93.9 Activity, unspecified; Y92.019 Unspecified place in single-family (private) house as the place of occurrence of the external cause
CPT/HCPCS: 36415; 70450; 71045; 80048; 80076; 83735; 84484; 85025; 93005; 96360; 99284; J7030